=== PATIENT | female | born 2000 | race Caucasian/White ===

== ENCOUNTER 2025-02-01 16:19 | Emergency (ER) | payer MEDICAID ==
[~2025-02-01] VITALS: Ht 162.6 cm; Wt 119.8 kg
[2025-02-01 16:24] VITALS: BP 138/88; PULSE 99; RESP 18; O2SAT 100
[2025-02-01 17:18] VITALS: TEMP 98.1
== END 2025-02-01 17:26 | disposition home or self-care (01) ==
LOC: ER 16:21
DX: R04.0 Epistaxis (principal)
CPT/HCPCS: 99281

== ENCOUNTER 2025-04-20 22:15 | Emergency (ER) | payer SELFPAY ==
[~2025-04-20] VITALS: Ht 162.6 cm; Wt 123.4 kg
--- NOTE | 2025-04-20 22:35 | Physician Documentation ---
History of Present Illness ~ Chief Complaint: Ear Pain Stated Complaint: EAR PAIN Time Seen by MD: 22:34 HPI Patient presents to the emergency room for evaluation of left ear pain. She noticed some discharge happening from this evening. Actual true discomfort has been lasting about three days. No fevers Medication Reconciliation Allergies: Coded Allergies: No Known Allergies (Unverified , 02/01/25) Review of Systems ROS All review of systems negative except as per HPI Physical Exam Vital Signs: Heart Rate: 99, Respiratory Rate: 16, BP: 145/86, Pulse Oximetry: 99, Weight: 123.400 Oxygen Flow Rate: 0 Physical Exam General: Patient is awake, alert, oriented x4 in no acute distress and well appearing.~ Head: Normocephalic and atraumatic. Eyes: Conjunctival normal. EOMI. PERRL. ENT: Mucous membranes moist. Right tympanic membrane normal, left tympanic membrane ruptured. No tenderness to palpation to mastoid process Neck: Supple, trachea is midline. Chest: Clear to auscultation bilaterally without rales, rhonchi, or wheezes. There is no accessory muscle use or retractions. Cardiac: RRR without murmurs, gallops, or rubs. Progress Results/Orders Results/Orders Orders - RAMON MCKNIGHT MD Amox Tr/Potassium Clavulanate (Augmentin (04/20/25 22:55) Ondansetron Disint. Tablet (Zofran Odt T (04/20/25 22:55) Vital Signs 04/20/25 22:20 Pulse 99 Resp 16 B/P (MAP) 145/86 Pulse Ox 99 O2 Flow Rate 0 Medical Decision Making Findings Patient presents to the emergency room with left ear pain as per HPI differentials include but are not limited to otitis externa, otitis interna, ruptured tympanic membrane, mastoiditis. Given physical exam we will treat for otitis media with rupture of tympanic membrane. She has been instructed to not submerge her head and water/get water into her ear and to follow up with her doctor to ensure closure of tympanic membrane. Departure Disposition: HOME / SELF CARE / HOMELESS Impression: Primary Impression: Ruptured tympanic membrane Condition: Stable Discharge Instructions: Otitis Media, Adult Additional Instructions: Follow up with your doctor to ensure tympanic membrane has healed. Do not submerge head/get water in ear Referrals: NO PRIMARY CARE PROVIDER (PCP) Prescriptions Amox Tr/Potassium Clavulanate (Augmentin 500-125 Tablet) 1 Each Tablet 1 TAB PO Q12H for 10 Days, #20 TAB Prov: RAMON MCKNIGHT MD 04/20/25 Education Educated: Patient Educated regarding: diagnosis, treatment, need for follow up Signature Scribe Signature: No scribe Attestation: The note accurately reflects work and decisions made by me.Ramon Mcknight MD 04/20/25 22:57 RAMON MCKNIGHT MD Apr 20, 2025 22:35
[2025-04-20] MEDS ORDERED: AMOX-115 PO (22:57)
[2025-04-20] MEDS: ondansetron 4mg rapidly disintigrating tab PO ONE (23:01)
[2025-04-20] MEDS: amox tr/potassium clavulanate 500mg/125mg TAB PO ONE (23:01)
[2025-04-20 23:07] VITALS: BP 140/84; PULSE 96; RESP 18; TEMP 98.6; O2SAT 99
== END 2025-04-20 23:09 | disposition home or self-care (01) ==
LOC: ER 22:15
DX: H72.92 Unspecified perforation of tympanic membrane, left ear (principal)
CPT/HCPCS: 99283

== ENCOUNTER 2025-08-03 11:51 | Emergency (ER) | payer MEDICAID ==
[~2025-08-03] VITALS: Ht 162.6 cm; Wt 117.7 kg
[2025-08-03 11:53] VITALS: BP 136/84; PULSE 68; RESP 16; TEMP 97.3; O2SAT 99
[2025-08-03 13:58] LABS: STREP A SCREEN NEGATIVE (Neg)
--- NOTE | 2025-08-03 14:13 | Physician Documentation ---
History of Present Illness ~ Chief Complaint: Sore Throat Stated Complaint: SORE THROAT Time Seen by MD: 13:27 HPI Patient is seen today with complaints of sore throat since yesterday. She states she did have some body fatigue but denies any fever or chills or body aches. She states she also did have a little postnasal drip and some cough yesterday. She states he actually felt worse yesterday than today. She wants checked out for strep throat. She has no other concern or complaint at this time. Medication Reconciliation Allergies: Coded Allergies: No Known Allergies (Unverified , 02/01/25) Review of Systems Constitutional: Denies: chills, fever, weakness Eyes: Denies: pain, blurred vision ENT: Denies: ear pain, nose pain, throat pain, mouth pain Respiratory: Denies: cough, shortness of breath Cardiovascular: Denies: chest pain, palpitations Gastrointestinal: Denies: abdominal pain, nausea, vomiting Genitourinary: Denies: burning, dysuria Female Genitalia: Denies: vaginal discharge, pelvic pain Neurological: Denies: headache, dizziness Musculoskeletal: Denies: pain, swelling Integumentary: Denies: rash, lesions Allergic/Immunologic: Denies: hives, itching Hematologic/Lymphatic: Denies: no symptoms reported Psychiatric: Denies: depression, anxiety Physical Exam Vital Signs: Temperature: 97.3, Source: Temporal, Heart Rate: 68, Respiratory Rate: 16, BP: 136/84, Pulse Oximetry: 99, Weight: 117.700 Oxygen Flow Rate: 0 Physical Exam General: Awake and Alert, no acute distress. HEENT: Patient on exam does have erythematous oropharynx without any tonsillar exudate. Conjunctiva pink, Sclera clear, Mucus Membranes moist. Neck: Supple without masses and tenderness. Resp: Unlabored. Lungs clear to auscultation bilaterally. Heart: Regular Rate and rhythm, normal S1 and S2 without murmur, rub or gallop. Extremities: No cyanosis,clubbing or edema. Skin: Warm and Dry. Progress Results/Orders Results/Orders Orders - YUMIKO CASTAÑEDA PAC Cult Throat + R/O Beta Strep (08/03/25 13:58) Completed Orders - YUMIKO CASTAÑEDA PAC Strep A Rapid (08/03/25 13:32) Vital Signs 08/03/25 11:53 Temp 97.3 Pulse 68 Resp 16 B/P (MAP) 136/84 Pulse Ox 99 O2 Flow Rate 0 Laboratory Tests Test 08/03/25 13:30 Group A Streptococcus Rapid Negative Medical Decision Making Additional information obtaine: N/A Findings Patient is seen today with complaints of sore throat since yesterday. She states she did have some body fatigue but denies any fever or chills or body aches. She states she also did have a little postnasal drip and some cough yesterday. She states he actually felt worse yesterday than today. She wants checked out for strep throat. She has no other concern or complaint at this time. Patient did have negative rapid strep in the ED today. Patient will continue increase rest and fluids and Tylenol ibuprofen as needed for symptomatic relief and will follow up with primary care in 3-5 days if no better as needed sooner. Return to ED with any worsening, concerning or changing symptoms. Ear Diff. Dx: Considerations: Include: Foreign body, Otitis externa, Otitis media Eye Diff. Dx: Considerations: Include: Conjuctivitis-bacterial, Corneal abrasion Nose Diff. Dx: Considerations: Include: Avulsion, Coagulopathy Tooth Diff. Dx: Considerations: Include: Tooth-fracture Throat Diff Dx: Considerations: Include: Esophageal candidiasis, Hand foot mouth disease Departure Disposition: HOME / SELF CARE / HOMELESS Impression: Primary Impression: Sore throat Condition: Stable Discharge Instructions: Sore Throat Additional Instructions: Patient did have negative rapid strep in the ED today. Patient will continue increase rest and fluids and Tylenol ibuprofen as needed for symptomatic relief and will follow up with primary care in 3-5 days if no better as needed sooner. Return to ED with any worsening, concerning or changing symptoms. Referrals: NO PRIMARY CARE PROVIDER (PCP) Signature Scribe Signature: No scribe Attestation: No scribe YUMIKO CASTAÑEDA PAC Aug 03, 2025 14:13
== END 2025-08-03 14:28 | disposition home or self-care (01) ==
LOC: ER 11:51
DX: J02.9 Acute pharyngitis, unspecified (principal)
CPT/HCPCS: 87081; 87880; 99283